=== PATIENT | male | born 1975 | race Caucasian/White ===

== ENCOUNTER 2020-03-21 13:10 | Outpatient (CLI) | payer MEDICAID ==
[~2020-03-21] VITALS: Ht 190.5 cm; Wt 71.2 kg
[2020-03-21 13:35] VITALS: BP 95/56
[2020-03-21] MEDS ORDERED: NATURE-THROID65 M1 PO (14:39)
--- NOTE | 2020-03-21 16:00 | Consultation ---
DATE OF CONSULTATION: 03/21/2020 CONSULTING PHYSICIAN: Luc Cheng MD. CHIEF COMPLAINT: Abdominal bloating and small intestine bacterial overgrowth. PAST MEDICAL HISTORY: 1. Hypothyroidism. 2. Neutropenia. 3. Gastritis. 4. IBS-D. 5. Hemorrhoids. PAST SURGICAL HISTORY: Right ankle surgery, right knee surgery, right wrist surgery. MEDICATIONS: Please see medication reconciliation list. FAMILY HISTORY: History of prostate cancer. SOCIAL HISTORY: The patient denies any tobacco, alcohol, or drug abuse. ALLERGIES: No known allergies. REVIEW OF SYSTEMS: Positive for abdominal pain, bloating, and weight loss. PHYSICAL EXAMINATION: VITAL SIGNS: Temperature 98.2, pulse , respirations 20, blood pressure 95/56. HEENT: Normocephalic and atraumatic. Sclerae are anicteric. NECK: Supple. No evidence of obvious lymphadenopathy. CARDIOVASCULAR: Regular rate and rhythm. Plus S1-S2. LUNGS: Clear to auscultation bilaterally. ABDOMEN: Positive bowel sounds. Soft and nontender. No rebound. No guarding. No peritoneal sign. EXTREMITIES: No cyanosis. No clubbing. No edema. ASSESSMENT AND PLAN: The patient is a 44-year-old male with weight loss, apparently had an endoscopy and colonoscopy this year which was nondiagnostic except for gastritis. He has been suffering from IBS-D for many years. He said he has been changing his diet and losing weight, but his family is concerned about this diarrhea that is persistent. Apparently, he had two breath test according to him for SIBO and both were positive, but never got treated. 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 He also has been checked for celiac according to him, it was negative. He has lactose intolerance and he is off of all the dairy products. So the diagnosis most probably is SIBO. We are going to try to treat him with either Xifaxan or Augmentin which one insurance covers and have the patient come back for followup after treatment. Luc Cheng M.D. DR: Alberto JOB#: [id number] CC:
== END 2020-03-21 15:10 | disposition home or self-care (01) ==
LOC: PAN 13:10
DX: R14.0 Abdominal distension (gaseous) (principal); E03.9 Hypothyroidism, unspecified; R63.4 Abnormal weight loss; K58.0 Irritable bowel syndrome with diarrhea; E73.9 Lactose intolerance, unspecified; Z80.42 Family history of malignant neoplasm of prostate
CPT/HCPCS: G0463